=== PATIENT | male | born 1975 | race Caucasian/White ===

== ENCOUNTER 2020-02-24 08:04 | Day surgery (SDC) | payer OTHER ==
[~2020-02-24] VITALS: Ht 177.8 cm; Wt 113.4 kg
--- NOTE | 2020-02-24 09:34 | NUR ---
02/24/20 0934 Rosemarie Salas 2807-PATIENT ARRIVED TO PACU ON 2L NC AWAKE RR EVEN. PATIENT MOVES ALL EXTREMITIES. ENCOURAGED TO PASS GAS. ABDOMEN SOFT. IVF INFUSING. BP ELEVATED DURING SCOPE AND 145/107 PATIENT REPORTS "TRYING HOLISTIC APPROACH WITH DR. TURNER"
--- NOTE | 2020-02-24 17:32 | OR ---
[facility] [address] [place], [place] [address] Signed DATE OF OPERATION: 02/24/2020 SURGEON: Francois Fisher MD PREOPERATIVE DIAGNOSES: Episodic rectal bleeding and suspected hemorrhoidal disease. POSTOPERATIVE DIAGNOSES: 1. Internal and external hemorrhoidal changes. 2. Large (greater than 2.5 cm) rectosigmoid polyp at 18 cm (excised). 3. Small rectal polyp (excised). PROCEDURE: Total colonoscopy to cecum with hot snare polypectomy x1 and cold morcellation polypectomy x1; application of hemoclips. ANESTHESIA: Intravenous sedation, fentanyl 100 mcg and Versed 10 mg. INDICATION: This 44-year-old white man is a patient of Dr. Rowan Turner and was seen upon referral for rectal bleeding. The patient suspects he has hemorrhoidal problems. He does have family history of polyps, but no known family history of colon cancer. He is admitted at this time to undergo colonoscopy to better characterize the problem of rectal bleeding. He understands the risks of bleeding, infection, and perforation related to colonoscopy and wished to proceed. FINDINGS: The prep was excellent. Complete colonoscopy was undertaken to the cecum without question. He had a rather large 2.5 cm pedunculated polyp at 18 cm from the anal verge, which was excised with hot snare polypectomy technique. It is very possible this lesion accounts for his episodic bleeding. He had another small rectal polyp, which was excised with cold morcellation technique. There were internal hemorrhoidal changes, but unlikely to be the source of his bleeding based on current appearance. DESCRIPTION OF PROCEDURE: The patient was brought to the endoscopy suite and placed in lateral decubitus position, given intravenous sedation to the point of slurred speech and nystagmus. Digital rectal examination showed external hemorrhoidal changes. An Olympus video colonoscope was passed in the rectum and manipulated throughout the colon ultimately intubating the Electronically Signed By: FRANCOIS FISHER MD 02/24/20 1732 PATIENT NAME: JOHN PEDERSEN OPERATIVE REPORT DATE OF : 75 REPORT #: [id number] PHYSICIAN: FRANCOIS FISHER MD PCP: ROWAN TURNER MD REPORT IS CONFIDENTIAL AND NOT TO BE RELEASED WITHOUT AUTHORIZATION [facility] [address] [place], [place] [address] Signed cecum itself. The ileocecal valve and appendiceal orifice were well identified. Irrigation was undertaken. The scope was carefully withdrawn. Examination throughout showed no sign of abnormality until approximately 18 cm from the anal verge where a very bulky violaceous large polyp about 2.5 cm or greater was noted. Manipulations with the biopsy forceps showed it had a sizable stalk. Using standard technique with hot snare polypectomy technique, the polyp was excised. Good hemostasis was noted in the polyp stalk; however, hemoclips were applied for of hemostasis. A basket was used to retrieve the polyp. The scope was further withdrawn and retroflexed view of the rectum did show some mild internal hemorrhoidal changes, but also a small adenomatous polyp, this was excised with cold morcellation technique. The scope was straightened, withdrawn and removed and the patient was taken to the recovery room in good condition. CONCLUDING DIAGNOSIS: Rectal bleeding most likely related to the large polyp rather than internal hemorrhoidal change. We will recommend repeat colonoscopy in 3 years. If he still has rectal bleeding, consideration made for hemorrhoidal treatment. In the meantime, high-fiber diet as well as a fiber supplement such as Citrucel would be recommended. MD ROMÁN Hackett/SVITLANAL /[id number] cc: Rowan Turner MD Copies: ROWAN TURNER DMD ~ Electronically Signed By: FRANCOIS FISHER MD 02/24/20 1732 PATIENT NAME: JOHN PEDERSEN OPERATIVE REPORT DATE OF : 75 REPORT #: [id number] PHYSICIAN: FRANCOIS FISHER MD PCP: ROWAN TURNER MD REPORT IS CONFIDENTIAL AND NOT TO BE RELEASED WITHOUT AUTHORIZATION
--- NOTE | 2020-02-25 15:16 | PATH ---
[facility] [address] [place], [place] [address] Signed SPECIMEN(S): A SIGMOID POLYP AT 18 CM SPECIMEN(S): B RECTAL POLYP SPECIMEN SOURCE: A. SIGMOID POLYP AT 18 CM B. RECTAL POLYP CLINICAL HISTORY: Colonoscopy. Rectal bleeding, family history of polyps. MICROSCOPIC DESCRIPTION: Histologic sections of all submitted blocks are examined by light microscopy. These findings, together with the gross examination, support the pathologic diagnosis. FINAL PATHOLOGIC DIAGNOSIS: A. Colon, sigmoid, polyp at 18 cm, polypectomy: - Tubulovillous adenoma; polyp stalk margin negative for dysplasia. - Negative for high-grade dysplasia or malignancy. B. Rectum, polyp, polypectomy: - Hyperplastic polyp. - Negative for dysplasia or malignancy. NAL:vlg:C2NR GROSS DESCRIPTION: Two specimens are received in two containers, labeled "CM." A. The specimen, labeled "CM, sigmoid colon polyp at 18 cm," is received in formalin and consists of one wesley soft tissue fragment that measures 1.9 cm in greatest dimension. It shows a white stalk that measures 0.2 cm in diameter. The stalk is inked and serially sectioned. The specimen is entirely submitted in cassettes (A1-A3). B. The specimen, labeled "CM, rectal polyp," is received in formalin and consists of one wesley soft tissue fragment that measures 0.1 cm in greatest dimension. The specimen is entirely submitted in cassette (B1). JS (under the direct supervision of a pathologist) The Gross Description was prepared using a voice recognition system. The report was reviewed for accuracy; however, sound-alike word errors, addition and/or deletions may occur. If there is any question about this report, please contact Client Services. PERFORMING LABORATORY: PATIENT NAME: JOHN PEDERSEN PATHOLOGY DATE OF : 75 REPORT #: [id number] PHYSICIAN: [facility] PCP: ROWAN TURNER MD REPORT IS CONFIDENTIAL AND NOT TO BE RELEASED WITHOUT AUTHORIZATION [facility] [address] [place] [address] Signed The technical component was performed [place] [address] ([employer]: Neelima Varner MD; CLIA# [id number]). Professional interpretation was performed by [facility], [address] [address] (CLIA# [id number]). Diagnostician: Diya Gunter MD Pathologist Electronically Signed 02/25/2020 Copies: ~ PATIENT NAME: JOHN PEDERSEN PATHOLOGY DATE OF : 75 REPORT #: [id number] PHYSICIAN: [facility] PCP: ROWAN TURNER MD REPORT IS CONFIDENTIAL AND NOT TO BE RELEASED WITHOUT AUTHORIZATION
== END 2020-02-24 10:10 | disposition home or self-care (01) ==
LOC: OPS 08:04 → DS 08:12 → OPS 09:15 → DS 09:15 → OPS 10:10
PROVIDERS: ATTEND Surgery
PROC: 0DBN8ZZ Excision of Sigmoid Colon, Via Natural or Artificial Opening Endoscopic (ICD-10-PCS; 2020-02-24)
PROC: 0DBP8ZZ Excision of Rectum, Via Natural or Artificial Opening Endoscopic (ICD-10-PCS; principal; 2020-02-24 09:15)
DX: D12.5 Benign neoplasm of sigmoid colon (principal); K62.1 Rectal polyp; K64.8 Other hemorrhoids; K64.4 Residual hemorrhoidal skin tags; K75.81 Nonalcoholic steatohepatitis (NASH); J45.909 Unspecified asthma, uncomplicated; E66.9 Obesity, unspecified; Z83.71 Family history of colonic polyps; Z68.35 Body mass index [BMI] 35.0-35.9, adult
CPT/HCPCS: 99153; G0500; J2250; J3010; J7121